=== PATIENT | female | born 2000 | race Caucasian/White ===

== ENCOUNTER 2022-01-29 19:38 | Outpatient (CLI) | payer OTHER ==
--- NOTE | 2022-01-29 20:40 | XRAY Report ---
PROCEDURE: Ankle 3 View RT INDICATIONS: RIGHT ANKLE SPRAIN TECHNIQUE: 3 views of the ankle were acquired. COMPARISON: None FINDINGS: Bones: No fractures or dislocations. Slight widening of lateral ankle mortise is seen.. No suspicio us bony lesions. Soft tissues: No tibiotalar joint effusion. Achilles tendon appears normal. IMPRESSION: No acute ankle fracture or dislocation. Widening of lateral ankle mortise concerning for distal syndesmotic injury. Reviewed by: Hamzah Nicholas MD on 01/29/2022 8:39 PM PDT Approved by: Hamzah Nicholas MD on 01/29/2022 8:39 PM PDT Station ID: [id number]
== END 2022-01-29 19:39 | disposition home or self-care (01) ==
LOC: DI 19:38
PROVIDERS: ATTEND Nurse Practitioner
DX: S93.401A Sprain of unspecified ligament of right ankle, initial encounter (principal)